=== PATIENT | female | born 1945 | race Caucasian/White ===

== ENCOUNTER → 2017-04-28 | Outpatient (CLI) | payer OTHER ==
[~2017-04-28] MED LIST: ACETAMINOPHEN-1 EAC1 PO; ASPIRIN81 M2 PO; CELEBREX 200 M200 M1 PO; CELEXA40 MG PO; CENTRUM SILVER1 EAC4 PO; COLON HEALTH; EVISTA; GABAPENTIN100 MG PO; GINKGO BILOBA120 MG PO; GREEN COFFEE BEAN EX; HYDROCODON-ACE1 EAC7 PO; LEVOXYL100 MCG PO; MACROBID 100 M100 M1 PO; MEGA RED PO; RED YEAST RICE600 MG PO; SKELAXIN 800 M800 M1 PO; TRAMADOL 50 MG50 MG PO; VALACYCLOVIR1000 MG; VITAMIN D1000 UNI1 PO
== END ==
LOC: ULTRA 10:34
DX: I63.9 Cerebral infarction, unspecified (principal); R13.10 Dysphagia, unspecified; R47.81 Slurred speech; R13.0 Aphagia

== ENCOUNTER → 2017-11-03 | Outpatient (CLI) | payer OTHER | LOC: CAT 08:55 | DX: K63.89 Other specified diseases of intestine (principal); R19.5 Other fecal abnormalities; R63.4 Abnormal weight loss ==

== ENCOUNTER → 2018-01-19 | Outpatient (CLI) | payer OTHER | LOC: ULTRA 09:52 | DX: R22.1 Localized swelling, mass and lump, neck (principal) ==

== ENCOUNTER → 2018-04-06 | Outpatient (CLI) | payer OTHER | LOC: CAT 09:53 | DX: I67.82 Cerebral ischemia (principal); G35 Multiple sclerosis; G45.9 Transient cerebral ischemic attack, unspecified; M17.0 Bilateral primary osteoarthritis of knee; R26.89 Other abnormalities of gait and mobility ==

== ENCOUNTER → 2019-01-12 | Outpatient (CLI) | payer OTHER | LOC: RAD 08:34 | DX: M50.322 Other cervical disc degeneration at C5-C6 level (principal); M48.02 Spinal stenosis, cervical region; M25.78 Osteophyte, vertebrae; M12.88 Other specific arthropathies, not elsewhere classified, other specified site ==

== ENCOUNTER 2019-04-26 08:43 | Inpatient (IN) | payer OTHER ==
[2019-04-14 09:54] LABS: HEMATOCRIT 39.4 % (37.0-47.0); HEMOGLOBIN 12.9 gm/dL (12.0-15.0); MCHC 32.8 g/dL (28.0-37.0); MCV 88.5 fL (80.0-100.0); RBC 4.45 mil/uL (4.20-5.00); RDW 13.2 % (10.5-14.5); WBC 5.9 thou/uL (4.0-11.0)
[2019-04-14 10:02] LABS: ALBUMIN 3.8 g/dL (3.4-5.0); CALCIUM 9.7 mg/dL (8.5-10.1); CREATININE 0.7 mg/dL (0.6-1.0)
[2019-04-14 10:04] LABS: URINE BILIRUBIN NEGATIVE (Negative); URINE BLOOD NEGATIVE (Negative); URINE CLARITY CLEAR; URINE COLOR YELLOW; URINE GLUCOSE-RANDOM* NEGATIVE (Negative); URINE KETONES NEGATIVE (Negative); URINE NITRITE-REFLEX NEGATIVE (Negative); URINE PROTEIN (DIPSTICK) NEGATIVE (Negative); URINE SPECIFIC GRAVITY 1.025 (1.005-1.035); URINE UROBILINOGEN 0.2 E.U./dl (0.2-1.0)
[2019-04-14 10:05] LABS: PROTIME 9.7 Seconds (9.3-11.4)
[2019-04-14 10:06] LABS: URINE LEUKOCYTES-REFLEX 1+ (Negative)
[2019-04-14 10:18] LABS: SQUAMOUS >10 Many /LPF (0-3)
[2019-04-14 10:19] LABS: BACTERIA-REFLEX 1-9 Few /HPF (None Seen); CASTS None Seen /LPF (None Seen); CRYSTALS None Seen /LPF (None Seen); URINE RBC None Seen /HPF (0-2); URINE WBC-REFLEX 6-15 Few /HPF (0-5)
--- NOTE | 2019-04-15 08:30 | EKG ---
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 : 1945 Requested By: Lico Salgado Order Number: [id number] MD: Tony Woods Measurements Intervals [place] Rate: 65 P: -12 [place]: 144 QRS: -22 QRSD: 94 T: -3 QT: 426 QTc: 443 Interpretive Statements Sinus rhythm Inferior infarct, old No previous ECG available for comparison Electronically Signed On 04-15-2019 8:29:53 CDT by Tony Woods [email or web address] ��������������������������������������������� <ELECTRONICALLY SIGNED> ���������������������������������������� By: Tony Woods MD ��������������������������������������������� 04/15/19 0829 09 09 Tony Woods MD /PEGGY
[~2019-04-26] VITALS: Ht 172.7 cm; Wt 64.9 kg
--- NOTE | ~2019-04-26 | O ---
[facility] [place] [address] OPERATIVE REPORT Name: MARISELA WILLIS Room #: 462-P [facility] IN M.R.#: [id number] Admission: 04/26/19 ������������������ Attend Phys: Lico Salgado MD Discharge: ������������������ Date of : 43 Report #: [id number] THIS REPORT FOR: //name// CC: Gene Salgado DATE OF SERVICE: 04/26/2019 PREOPERATIVE DIAGNOSIS: Left knee osteoarthritis. POSTOPERATIVE DIAGNOSIS: Left knee osteoarthritis. PROCEDURE: Left total knee arthroplasty using Navio robotic assistance. SURGEON: Lico Salgado MD. CUSTOMER SUCCESS INTERN: Silvana Whittaker PA-C. INDICATIONS FOR CUSTOMER SUCCESS INTERN: Throughout the case, extensive retraction and manipulation of the knee was required. This was afforded to me by my graduate teaching assistant. ANESTHESIA: LMA with an adductor canal block. IMPLANTS: Issa and Nephew size 4 Legion cobalt chrome posterior stabilized femur, size 3 tibia, size 11 highly constrained polyethylene and size 35 patella. TOURNIQUET TIME: 57 minutes. ESTIMATED BLOOD LOSS: 25 mL. COMPLICATIONS: None. SPECIMENS: None. CONDITION UPON LEAVING THE OPERATING ROOM: Stable. INDICATIONS FOR PROCEDURE: The patient is a 73-year-old female with severe left knee osteoarthritis. She had failed conservative measures for this and after discussion with her, she elected for left total knee arthroplasty. DESCRIPTION OF PROCEDURE: Risks, benefits, alternatives, complications were discussed in detail with the patient including but not limited to risk of anesthesia, risk of damage to nerves, arteries, blood vessels, risk for infection, bleeding, risk for continued knee pain, need for reoperation. Informed consent was obtained from the patient. Left knee was appropriately [facility] [address] [place] [address] OPERATIVE REPORT Name: LAZARO WILLISN Kostas Room #: 462-P [facility] IN M.R.#: [id number] Admission: 04/26/19 ������������������ Attend Phys: Lico Salgado MD Discharge: ������������������ Date of : 43 Report #: [id number] marked in the preoperative holding area. IV Ancef was given for preoperative antibiotics. Adductor canal block was placed by Anesthesia. She was brought to the operating room and placed in supine position on operating room table. LMA anesthesia was induced without complication. Tourniquet was placed on the left thigh. Left lower extremity was prepped and draped in normal sterile fashion. Timeout was performed, properly identifying the patient and procedure as well as the instrumentation and implants. All in the operating room were in agreement. Left lower extremity was exsanguinated, tourniquet was inflated. Tourniquet time was 57 minutes. Standard midline approach to knee was made with 10 blade through the skin. Dissection was taken down sharply to the fascia and deep flaps were developed medially and laterally. Fresh 10 blade was used to make a medial parapatellar arthrotomy and the knee was inspected. There was severe medial compartment osteoarthritis with moderate lateral and patellofemoral osteoarthritis. Reference pins were placed in the femur and the tibia. The knee was digitally mapped using the Navio robotic system. Intraoperative plan was made and we sized a size 4 femur with a size 3 tibia and a size 11 polyethylene spacer. After acceptance of the intraoperative plan, the distal femoral cut was made with a Navio bur. The 4-in-1 cutting block was placed. Anterior, posterior and chamfer cuts were made on the femur. After this, attention was turned to the tibia and the remainder of the menisci were removed with Bovie cautery and the tibial resection guide was pinned in place using the Navio for placement of the guide. Tibial resection was made. Flexion and extension gaps were then checked and found to have good balance in flexion and extension both medially and laterally. The tibia was sized, found to be a size 3. A size 3 tibial trial was placed, pinned and punched. Size 4 femoral trial was placed and the box cut was made. This was then trialed with a size 10 and then a size 11 polyethylene. Size 11 polyethylene demonstrated 1 millimeter laxity medially throughout range of motion with 3-4 mm laterally. It was felt we could make up for this with the final implants. After this, trial components were removed. A 9 mm was taken off the posterior surface of the patella and a size 35 patellar trial was placed. Bony ends were thoroughly irrigated and a final size 3 tibia, size 4 Legion cobalt chrome posterior stabilized femur and a size 35 patella were cemented in place using standard cementation techniques. While the cement cured, a periarticular injection consisting of morphine, ropivacaine, epinephrine and Toradol was placed around the knee joint capsule. After the cement cured, the tourniquet was deflated. Hemostasis was obtained with Bovie cautery. Final size 11 highly constrained polyethylene was placed. Knee was taken through range of motion, found to be stable, found to have good balance in flexion and extension with good patellar tracking. After this, final size 11 highly constrained polyethylene was placed, 1 gram of vancomycin was placed deep in the joint. The fascia was closed with 0 Vicryl. Skin was closed with 2-0 Vicryl and 3-0 Monocryl. Dermabond and KENDRA dressing were applied. [address] [address] OPERATIVE REPORT Name: MARISELA WILLIS Room #: 462-P [facility] IN .R.#: [id number] Admission: 04/26/19 ������������������ Attend Phys: Lico Salgado MD Discharge: ������������������ Date of : 43 Report #: [id number] The patient tolerated this procedure well and went to the recovery room under care of anesthesia postoperatively. ��������������������������������������������� ���������������������������������������� By: ��������������������������������������������� 1614 1752 Lico Salgado MD /nt
[~2019-04-26 08:43] MED LIST changes: +APAP650 PO; +MACROBID 100 M100 M3 PO; +SYNTHROID100 MC1 PO
[2019-04-26 13:37] VITALS: BP 132/87
[2019-04-26 18:00] VITALS: BP 164/99
[2019-04-26 18:30] VITALS: BP 154/88
--- NOTE | 2019-04-26 18:51 | NUR ---
ASSUMED CARE AT 1800, SHIFT ASSESSMENT DONE, MEDS GIVEN, VSS. KENDRA DRESSING TO LEFT KNEE C/D/I, DARCIE WRAP AND POLAR PACK IN PLACE. IV FLUIDS INFUSING, WILL CONTINUE TO ASSESS AND ASSIST WITH ADLs NEEDED.
[2019-04-26 19:08] VITALS: BP 156/93
[2019-04-26 20:20] VITALS: BP 146/97
[2019-04-26 21:15] VITALS: BP 154/88
[2019-04-27 04:00] VITALS: BP 105/64
--- NOTE | 2019-04-27 05:53 | NUR ---
ASSUMED CARE OF PT @1900. PT A&OX4. DENIES OPIOIDS FOR PAIN. PT RECIEVED TYLENOL FOR PAIN WHICH WAS EFFECTIVE. PT IS BEDREST UNTIL PT SEES HER. PT USES THE BEDPAN FOR TOILETING. KENDRA DRESSING IN PLACE. DRESSING TO LEFT KNEE CLEAN, DRY AND INTACT. DARCIE WRAP AND POLAR ICE IN PLACE. PT HAD AN APPROPRAITE URINE OUTPUT OVERNIGHT. CONT. IVF, IVABX AND PAIN CONTROL
[2019-04-27 06:11] LABS: HEMATOCRIT 31.8 % (37.0-47.0); HEMOGLOBIN 10.6 gm/dL (12.0-15.0); MCH 29.3 pg (26.0-34.0); MCHC 33.3 g/dL (28.0-37.0); MCV 88.2 fL (80.0-100.0); RBC 3.61 mil/uL (4.20-5.00); RDW 12.8 % (10.5-14.5)
[2019-04-27 08:19] VITALS: BP 111/57
[2019-04-27] MEDS ORDERED: ASPIR 8181 MG PO (12:11)
[2019-04-27] MEDS ORDERED: NEURONTIN 300300 M1 PO (12:11)
--- NOTE | 2019-04-27 13:04 | NUR ---
Received awake on bed. Due medications given as prescribed. A+Ox4. On room air. With D5NS 100cc/hr, infusing well at L hand. With surgical wound at L knee C/D/I, Ashlyn bello, RADHA, Polar packs, KENDRA dressing in place. Vital signs stable. Falls risk- falls bundle in place. Complained of pain, due PRN pain meds given as prescribed. Had PT session today- tolerated well. Pt seen by Ortho today- pending discharge once ok with PT this afternoon.
[2019-04-27 14:28] VITALS: BP 111/57
[2019-04-27 15:36] VITALS: BP 140/70
--- NOTE | 2019-04-27 16:34 | NUR ---
PT ADMITTED RELATED TO LT TOTAL KNEE REPLACEMENT. CM REVIEWED CHART AND SPOKE WITH CARE TEAM. PT IS A&O X4. CM ROLE INTRODUCED. PT INDICATED SHE LIVES IN AN INDEPDENENT LIVING LIKE SETTING APARTMENT. [facility] SHE WILL DO THERAPY AT THE FACILITY SHE HAS A FWW. IT IS ANTIPATED THAT PT WILL RETURN HOME TODAY. NO OTHER CM INTERVENTION INDICATED CASE CLOSED.
== END 2019-04-27 17:29 | disposition home or self-care (01) | DRG 470 ==
LOC: PRE 08:43 → 4W 12:18 → TBA 12:18 → PRE 13:26 → 4W 18:09 → ENTRNSPT 04-27 17:13 → 4W 04-27 17:29
PROVIDERS: ADMIT Orthopaedic Surgery
PROC: 0SRD0J9 Replacement of Left Knee Joint with Synthetic Substitute, Cemented, Open Approach (ICD-10-PCS; principal; 2019-04-26)
PROC: 8E0Y0CZ Robotic Assisted Procedure of Lower Extremity, Open Approach (ICD-10-PCS; principal; 2019-04-26)
DX: M17.12 Unilateral primary osteoarthritis, left knee (principal); Z96.611 Presence of right artificial shoulder joint; Z88.8 Allergy status to other drugs, medicaments and biological substances; Z91.018 Allergy to other foods; Z91.048 Other nonmedicinal substance allergy status; Z79.82 Long term (current) use of aspirin; Z79.899 Other long term (current) drug therapy; Z85.3 Personal history of malignant neoplasm of breast; Z90.49 Acquired absence of other specified parts of digestive tract; Z90.710 Acquired absence of both cervix and uterus; Z90.13 Acquired absence of bilateral breasts and nipples; Z90.89 Acquired absence of other organs; Z90.722 Acquired absence of ovaries, bilateral; Z83.3 Family history of diabetes mellitus; Z84.89 Family history of other specified conditions
CPT/HCPCS: 10047; 50010; 50101; 50415; 50954; 51130; 51225; 51320; 52001; 52282; 53000; 53078; 53364; 54118; 56527; 56528; 57095; 57103; 57110; 57127; 62110; 62900; 64039; 70005

== ENCOUNTER → 2020-02-01 | Outpatient (CLI) | payer OTHER ==
[~2020-02-01] MED LIST changes: +ASPIR 8181 MG PO; +NEURONTIN 300300 M1 PO
== END ==
LOC: RAD 10:27
PROVIDERS: ATTEND Nurse Practitioner
DX: M19.042 Primary osteoarthritis, left hand (principal); M19.041 Primary osteoarthritis, right hand; M77.9 Enthesopathy, unspecified

== ENCOUNTER → 2020-02-14 | Outpatient (CLI) | payer OTHER | LOC: SJCVCINTER 10:01 | PROVIDERS: ATTEND Internal Medicine | DX: R94.31 Abnormal electrocardiogram [ECG] [EKG] (principal); I34.1 Nonrheumatic mitral (valve) prolapse; G35 Multiple sclerosis; M15.3 Secondary multiple arthritis; Z79.899 Other long term (current) drug therapy; Z85.3 Personal history of malignant neoplasm of breast ==

== ENCOUNTER → 2020-02-15 | Outpatient (CLI) | payer OTHER ==
--- NOTE | 2020-02-21 19:39 | SLE ---
[facility] [place] [address] POLYSOMNOGRAPHY STUDY Name: LAZAROMARISELA Kostas Room #: REG [facility]#: [id number] Admission: 02/15/20 Attend Phys: Alba Joshua DNP Discharge: Date of : 43 Report #: [id number] THIS REPORT FOR: //name// CC: Alba Pinto DATE OF SERVICE: 02/15/2020 SLEEP STUDY REFERRING PHYSICIAN: BERNARDO Daly The patient is a 74-year-old who weighs 142 pounds with a BMI of 22.2. The patient's [place] score was 6. The patient underwent split night study performed at [facility]. During the night study, the patient spent 449 minutes in bed and slept for 305 minutes with a sleep efficiency of 68%. Sleep latency was 8.3 minutes with a REM latency of 159 minutes. Sleep architecture showed normal stage 1 sleep, increased stage 2 sleep, normal slow wave and normal REM sleep. During the initial diagnostic portion of the study, the patient slept for 164 minutes. During that time, the patient had 43 obstructive apneas, no mixed apneas, 1 central apnea and 23 hypopneas. The patient's AHI was 24.5 per hour with a REM AHI of 15 per hour and a supine AHI of 26.8 per hour. EKG monitoring revealed an average heart rate of 83 beats per minute. No sustained arrhythmias observed. PLMS were seen at an index of 11 per hour and 2.2 per hour caused EEG arousals. PLMS resolved while the patient slept on CPAP. Nocturnal oximetry study during the diagnostic portion revealed an average oxygen saturation of 96% with lowest of 90%. The patient met the criteria for CPAP initiation. It was started at 5 cm water and titrated up to 8 cm water. The patient did reasonably well even at 7 cm water. The patient had 47 minutes of sleep and 28 minutes of lateral REM sleep with an AHI of 3.8 per hour. At a final pressure of 8 cm water, the patient had 37.6 minutes of sleep. No REM sleep or supine sleep seen. The patient's AHI was 0 per hour and oxygen saturation remained above 95%. This could be the final pressure, with review of the download data in 30 days. IMPRESSION: 1. Moderate obstructive sleep apnea at an AHI of 24.5 per hour with a REM AHI [address] [address] POLYSOMNOGRAPHY STUDY Name: LAZAROMARISELA Kostas Room #: REG [facility]#: [id number] Admission: 02/15/20 Attend Phys: Alba Joshua DNP Discharge: Date of : 43 Report #: [id number] of 15 per hour. 2. No clinically significant nocturnal hypoxia. 3. Mild PLMS, which resolved while the patient slept on CPAP. RECOMMENDATIONS: 1. CPAP at 8 cm water should be used on a nightly basis. 2. Follow up in 4-6 weeks to assess compliance with CPAP and to document clinical improvement. 3. Avoid FAMILY PRACTITIONER depressants. 4. Cautioned regarding driving until symptoms of sleep apnea resolve with the use of CPAP. <ELECTRONICALLY SIGNED> By: Leonardo Narvaez MD 02/21/201938 18 38 Leonardo Narvaez MD /nt
== END ==
LOC: SLEEPLAB 02-11 09:00 → LAB 08:41 → SLEEPLAB 09:00 → LAB 11:14 → EDSTATUS 11:28 → SLEEPLAB 19:27
PROVIDERS: ATTEND Nurse Practitioner
DX: G47.33 Obstructive sleep apnea (adult) (pediatric) (principal)

== ENCOUNTER → 2020-03-06 | Outpatient (CLI) | payer OTHER | LOC: SJCVCIMAG 07:59 | PROVIDERS: ATTEND Internal Medicine | DX: I08.3 Combined rheumatic disorders of mitral, aortic and tricuspid valves (principal); R07.89 Other chest pain ==

== ENCOUNTER → 2020-03-20 | Outpatient (CLI) | payer OTHER ==
[~2020-03-20] VITALS: Ht 165.1 cm; Wt 62.6 kg
[2020-03-20 10:04] VITALS: BP 159/87
[2020-03-20 10:26] LABS: HEMATOCRIT 39.6 % (37.0-47.0); HEMOGLOBIN 13.1 gm/dL (12.0-15.0); MCH 29.8 pg (26.0-34.0); MCV 90.2 fL (80.0-100.0); PLATELET COUNT 285 thou/uL (150-400); RDW 13.5 % (10.5-14.5); WBC 6.6 thou/uL (4.0-11.0)
[2020-03-20 10:44] LABS: CALCIUM 9.1 mg/dL (8.5-10.1); CREATININE 0.9 mg/dL (0.6-1.0)
[2020-03-20 14:23] LABS: ABSOLUTE NEUTROPHILS 2.3 thou/uL (1.4-8.2); ANISOCYTOSIS 1+
--- NOTE | 2020-03-20 14:27 | EKG ---
[facility] [place] [address] ELECTROCARDIOGRAM REPORT Name: MARISELA WILLIS Room #: REG [facility]#: [id number] Admission: 03/20/20 Attend Phys: Yasmani Potter Discharge: Date of : 43 Report #: [id number] THIS REPORT FOR: cc: Gene Pinto MD, Rene P. MD Couchonnal, Luis F. 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1945 Requested By: Yasmani Potter Order Number: [id number] MD: Tony Woods Measurements Intervals [place] Rate: 73 P: -14 TN: 155 QRS: -20 QRSD: 96 T: -12 QT: 419 QTc: 462 Interpretive Statements Sinus rhythm Ventricular premature complex Inferior infarct, old Baseline wander in lead(s) V4 Compared to ECG 04/14/2019 09:10:13 Ventricular premature complex(es) now present Myocardial infarct finding still present Electronically Signed On 03-20-2020 14:27:12 CDT by Tony Woods [email or web address] <ELECTRONICALLY SIGNED> By: Tony Woods MD 03/20/20 1427 1029 1029 Tony Woods MD /EPI
--- NOTE | 2020-03-31 11:52 | CATHLAB ---
[facility] [place] [address] INVASIVE PROCEDURE REPORT Name: MARISELA WILLIS Room #: REG [facility].#: [id number] Admission: 03/20/20 Attend Phys: Yasmani Potter Discharge: Date of : 43 Report #: [id number] THIS REPORT FOR: cc: Gene Pinto MD, Rene P. MD Lammoglia, Francisco J. MD ~ APPROVED REPORT Study performed: 03/20/2020 14:31:10 Patient Details Patient Status: Out-Patient Room #: The patient is a 74 year-old female Event Personnel Yasmani Potter Computing Services Director, uLis Mon RN RN, Morteza Dudley RTR ScrubMariposa Nancy RTR, MANAGER HEAVY DUTY Monitor, Florence Franco RN Procedures Performed Art Access - R femoral artery* Left Heart Cath w/or w/o Coronaries [id number] [facility] [address] Initial Mod Sed Same Phys/QHP Gr 819163 Hemostasis with Manual pressure 19897 Mod Sed Same Phys/QHP Ea 303806, supervision of conscious sedation Indication Positive stress test Procedure Narrative The Right Groin^ was infiltrated with 1% Lidocaine subcutaneous anesthesia. A PINNACLE 4FR Sheath #[id number] sheath was inserted into the RFA^. Coronary angiography was performed using coronary diagnostic catheters. The right coronary system was accessed and visualized with a JR4 catheter. The left coronary system was accessed and visualized with a 4FR JL 5.0 #[id number] catheter. The left ventricle was accessed and visualized with a ANGLED PIGTAIL catheter. Left ventricular/Aortic Valve gradient assessed via catheter pullback. Hemostasis was obtained with manual pressure following sheath removal without any complications. The patient tolerated the procedure well and there were no complications associated with the procedure. There was no hematoma. Intraoperative Conscious Sedation Sedation start time: 15:06 Case end Time: [facility] [address] [place] [address] INVASIVE PROCEDURE REPORT Name: MARISELA WILLIS Room #: REG [facility]#: [id number] Admission: 03/20/20 Attend Phys: Yasmani Barrientos Discharge: Date of : 43 Report #: [id number] 15:33 Versed 2 mg Fluoro Time: 3.70 minutes Dose: DAP 3369.90 cGycm2 482 mGy Contrast Type and Amount: Omnipaque 40 ml Coronary Angiography The patient's coronary anatomy is left dominant. Diagnostic Cath Left Main Large-caliber normal origin bifurcates left anterior descending left circumflex free of high-grade disease. Is quite short in length LAD Moderate caliber type III vessel which courses in the anterior interventricular sulcus. After giving rise to first septal diagonal branch there is an eccentric 30 to 40% lesion noted in the LAD and then continues in the anterior interventricular sulcus tapering with a 30 to 40% lesion prior to the distal third. The vessel and continues and terminates as a small caliber vessel Diagonal 1 Diminutive caliber vessel without high-grade lesion Diagonal 2 Diminutive caliber vessel without high-grade lesion Diagonal 3 Small caliber vessel with luminal irregularities noted Circumflex Large-caliber dominant vessel gives rise to a diminutive small branch early on. It then continues on the rise to moderate to large caliber second marginal branch and continues in the AV groove posteriorly giving rise to a small posterior descending artery which has some proximal lesions. OM1 Diminutive caliber vessel OM2 Large-caliber bifurcating vessel without high-grade lesions present OM3 Small caliber posterior wall branch without high-grade disease L PDA Small caliber vessel with mild irregularities proximally but no high-grade lesions are noted Right Coronary Small nondominant vessel normal origin has a mild plaquing in its proximal third prior to reaching the acute margin of the heart where it terminates as a bifurcating vessel Left Ventriculography Left Ventriculography was not performed. Hemodynamics The aortic pressure is 166/83 mmHg with a mean of 113 mmHg. [facility] [address] [place] [address] INVASIVE PROCEDURE REPORT Name: MARISELA WILLIS Room #: REG [facility].#: [id number] Admission: 03/20/20 Attend Phys: Yasmani Barrientos Discharge: Date of : 43 Report #: [id number] ventricular pressure is 163/3 mmHg with a mean of mmHg. The left ventricular end diastolic pressure is 21 mmHg. Conclusion 1. Coronary disease mild and nonobstructive 2. Normal hemodynamics Recommendations Cardiac Risk Reduction Program Medical Therapy <ELECTRONICALLY SIGNED> By: Yasmani Potter MD 03/31/20 1152 1152 1152 Yasmani Potter MD /INF
== END | disposition home or self-care (01) ==
LOC: CATH 09:54
PROVIDERS: ATTEND Internal Medicine
DX: I25.10 Atherosclerotic heart disease of native coronary artery without angina pectoris (principal); E03.9 Hypothyroidism, unspecified; G35 Multiple sclerosis; Z98.890 Other specified postprocedural states; Z79.899 Other long term (current) drug therapy; Z98.0 Intestinal bypass and anastomosis status; Z96.651 Presence of right artificial knee joint; Z98.41 Cataract extraction status, right eye; Z98.42 Cataract extraction status, left eye; Z90.710 Acquired absence of both cervix and uterus; Z90.49 Acquired absence of other specified parts of digestive tract; Z96.611 Presence of right artificial shoulder joint; Z88.8 Allergy status to other drugs, medicaments and biological substances

== ENCOUNTER 2021-03-03 20:35 | Emergency (ER) | payer OTHER ==
[~2021-03-03] VITALS: Ht 167.6 cm; Wt 65.8 kg
[~2021-03-03 20:35] MED LIST changes: +CEPHALEXIN500 MG PO; +ZOFRAN ODT4 MG PO
[2021-03-03 21:32] LABS: ABSOLUTE NEUTROPHILS 7.3 thou/uL (1.4-8.2); BASOPHILS 0.7 % (0.0-2.0); EOSINOPHILS 0.1 % (0.0-3.0); HEMATOCRIT 42.2 % (37.0-47.0); HEMOGLOBIN 14.1 gm/dL (12.0-15.0); LYMPHOCYTES 16.6 % (24.0-44.0); MCH 29.4 pg (26.0-34.0); MCHC 33.3 g/dL (28.0-37.0); MCV 88.3 fL (80.0-100.0); MONOCYTES 6.1 % (1.0-8.0); PLATELET COUNT 306 thou/uL (150-400); POLYS 76.5 % (36.0-66.0); RBC 4.78 mil/uL (4.20-5.00); RDW 14.1 % (10.5-14.5); WBC 9.5 thou/uL (4.0-11.0)
[2021-03-03 21:36] LABS: URINE BILIRUBIN 1+ (Negative); URINE BLOOD 3+ (Negative); URINE COLOR YELLOW; URINE GLUCOSE-RANDOM* NEGATIVE (Negative); URINE KETONES NEGATIVE (Negative); URINE NITRITE-REFLEX NEGATIVE (Negative); URINE PROTEIN (DIPSTICK) 1+ (Negative); URINE SPECIFIC GRAVITY 1.015 (1.005-1.035)
[2021-03-03 21:47] LABS: URINE LEUKOCYTES-REFLEX 3+ (Negative)
[2021-03-03 21:48] LABS: ICTOTEST (BILI CONFIRMATORY) Positive (Negative); URINE CLARITY CLOUDY
[2021-03-03 21:48] LABS: ANION GAP 10 mmol/L (7-16); BUN 28 mg/dL (7-18); CALCIUM 9.6 mg/dL (8.5-10.1); CHLORIDE 103 mmol/L (98-107); CO2 26 mmol/L (21-32); CREATININE 0.9 mg/dL (0.6-1.0); GLUCOSE 121 mg/dL (74-106); SODIUM 139 mmol/L (136-145)
[2021-03-03 21:50] LABS: BACTERIA-REFLEX >30 Many /HPF (None Seen); CASTS None Seen /LPF (None Seen); CRYSTALS None Seen /LPF (None Seen); SQUAMOUS 0-3 Few /LPF (0-3); URINE RBC 3-10 Few /HPF (NONE SEEN); URINE WBC-REFLEX 6-15 Few /HPF (0-5)
[2021-03-03 21:52] LABS: ALBUMIN 3.5 g/dL (3.4-5.0); DIRECT BILIRUBIN 0.1 mg/dL (<0.1-0.2); SGOT 17 U/L (15-37); SGPT 11 U/L (30-65); TOTAL BILIRUBIN 0.8 mg/dL (0.2-1.0); TOTAL PROTEIN 7.2 g/dL (6.4-8.2); TROPONIN-I <0.06 ng/mL (<0.06)
[2021-03-04 00:07] VITALS: BP 141/80
[2021-03-04] MEDS ORDERED: CEPHALEXIN500 MG PO (00:19)
[2021-03-04] MEDS ORDERED: ZOFRAN ODT4 MG PO (00:19)
--- NOTE | 2021-03-04 14:38 | EKG ---
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1945 Requested By: Viry Meadows Order Number: [id number] MD: Juliano Montana Measurements Intervals [place] Rate: 95 P: -4 NJ: 150 QRS: -18 QRSD: 83 T: -54 QT: 424 QTc: 533 Interpretive Statements Sinus rhythm Inferior infarct, age indeterminate Prolonged QT interval Compared to ECG 03/20/2020 10:29:08 Prolonged QT interval now present Ventricular premature complex(es) no longer present Electronically Signed On 03-04-2021 14:38:30 CDT by Juliano Montana [email or web address] <ELECTRONICALLY SIGNED> By: Juliano Montana MD, [facility] 03/04/21 1438 04 04 Juliano Montana MD, [facility] /EPI
== END 2021-03-04 00:07 | disposition home or self-care (01) ==
LOC: ER 20:35
PROVIDERS: Emergency Medicine
DX: N39.0 Urinary tract infection, site not specified (principal); K52.89 Other specified noninfective gastroenteritis and colitis; E03.9 Hypothyroidism, unspecified; Z90.89 Acquired absence of other organs; Z90.13 Acquired absence of bilateral breasts and nipples; Z88.6 Allergy status to analgesic agent; Z88.8 Allergy status to other drugs, medicaments and biological substances; Z91.018 Allergy to other foods